=== PATIENT | male | born 1940 | race Caucasian/White ===

== ENCOUNTER 2018-03-06 05:45 | Day surgery (SDC) | payer OTHER ==
[~2018-03-06 05:45] MED LIST: ATORVASTATIN CA10 MG PO; EPIVIR300 MG PO; METOPROLOL SUCC50 MG PO; PLAVIX75 MG PO; STAVUDINE PO
== END 2018-03-06 10:05 | disposition home or self-care (01) ==
LOC: CIR.AMB 05:45
DX: R15.9 Full incontinence of feces (principal)
CPT/HCPCS: 33264; C1767